=== PATIENT | male | born 1980 | race Caucasian/White ===

== ENCOUNTER 2021-03-30 11:03 | Outpatient (CLI) | payer OTHER ==
[~2021-03-30 11:03] MED LIST: VASOTEC5 MG PO
== END 2021-03-30 11:24 | disposition home or self-care (01) ==
LOC: SONOGRAMA 11:03
PROVIDERS: ATTEND Physical Medicine & Rehabilitation
DX: M77.11 Lateral epicondylitis, right elbow (principal)

== ENCOUNTER 2022-08-10 08:58 | Outpatient (CLI) | payer OTHER | END 2022-08-10 09:39 | disposition home or self-care (01) | LOC: SONOGRAMA 08:58 | PROVIDERS: ATTEND Physical Medicine & Rehabilitation | DX: M79.641 Pain in right hand (principal) ==

== ENCOUNTER 2023-09-04 08:17 | Inpatient (IN) | payer OTHER ==
[~2023-09-04] VITALS: Ht 167.6 cm; Wt 86.2 kg
[2023-09-04] MEDS ORDERED: COZAAR25 MG PO (08:57)
--- NOTE | 2023-09-04 09:02 | NUR ---
PTE ALERTA Y ORIENTADO X3 EN COMPANIA DE FAMILIAR REFIERE VNEIRPOR DOLOR EN BRAZO MAXIME, PTE EXPRESA QUE SHARPE ESTADO VOMITANDO (5), DIAREAS (4) Y QUE SHARPE ESTADO TENIENDO FIEBRE. SE SYDNEE S/V Y SE UBICA.
[2023-09-04] MEDS ORDERED: KETOROLAC TROMETHAMINE 30 MG VIAL IV STA (09:22)
[2023-09-04] MEDS ORDERED: CEFAZOLIN SODIUM 1,000 MG VIAL IV STA (09:23)
[2023-09-04] MEDS ORDERED: DEXAMETHASONE SODIUM PHOSPHATE 4 MG/ML VIAL IV STA (09:23)
[2023-09-04] MEDS ORDERED: 0.9 % SODIUM CHLORIDE 1,000 ML IV STA (09:24)
[2023-09-04] MEDS ORDERED: CEFAZOLIN SODIUM 2,000 MG in DEXTROSE 5 % IN WATER 100 ML IV SCH (09:46)
--- NOTE | 2023-09-04 09:51 | NUR ---
SE EDUCA PACIENTE SOBRE EL TX MEDICO Y KIKI REFIERE ENTENDER. SE SYDNEE MUESTRAS DE LABORATORIOS Y SE ENVIAN. SE ADMINITRAN MEDICAMENTOS CAPO ORDEN MEDICA. PENDIENTE A U/A
[2023-09-04 10:33] LABS: CALCIUM 8.8 mg/dL (8.5-10.1); CREATININE SERUM 1.94 mg/dL (0.70-1.30); GFR 37.96; POTASSIUM 4.34 mEq/L (3.5-5.1)
[2023-09-04 10:36] LABS: HEMATOCRIT 41.1 % (39.0-48.0); HEMOGLOBIN 14.3 g/dL (13-16.00); MEAN CELL VOLUME 87.8 fL (80.0-100.00); MEAN CORPUSCULAR HEMOGLOBIN 30.6 pg (27.00-32.0); MEAN CORPUSCULAR HGB CONC 34.8 g/dl (32.0-36.0); PLATELET COUNT 201 K/uL (150-450); RED BLOOD COUNT 4.68 M/uL (4.00-6.00); RED CELL DISTRIBUTION WIDTH 13.2 % (11.5-14.5)
[2023-09-04 10:38] LABS: URINE APPEARANCE Cloudy; URINE BILIRRUBIN Small (NEGATIVE); URINE BLOOD Negative; URINE COLOR Orange; URINE GLUCOSE Negative (NEGATIVE); URINE LEUKOCYTE Small; URINE NITRATE Positive
[2023-09-04 10:42] LABS: URINE BACTERIA 733.3 uL (0.0-1933); URINE EPITHELIAL CELLS 33.3 uL (0.0-38.8); URINE WBC 71.5 uL (0.0-23.2)
[2023-09-04 11:50] LABS: URINE MUCUS HEAVY; URINE PROTEIN 100 (NEGATIVE)
[2023-09-04] MEDS ORDERED: FAMOTIDINE/PF 20 MG in 0.9 % SODIUM CHLORIDE 100 ML IV SCH (17:02)
[2023-09-04] MEDS ORDERED: 0.9 % SODIUM CHLORIDE 1,000 ML IV SCH (17:15)
[2023-09-04] MEDS ORDERED: ACETAMINOPHEN 325 MG TABLET PO PRN (17:15)
[2023-09-04] MEDS ORDERED: LOSARTAN POTASSIUM 25 MG TABLET PO SCH (17:28)
[2023-09-04] MEDS ORDERED: ENALAPRIL MALEATE 5 MG TABLET PO SCH (17:28)
[2023-09-04] MEDS ORDERED: PIPERACILLIN/TAZOBACTAM SODIUM 3.375 GM in 0.9 % SODIUM CHLORIDE 100 ML IV SCH (18:00)
[2023-09-04 19:28] LABS: ALBUMIN 2.9 gm/dL (3.4-5.0); CALCIUM 8.6 mg/dL (8.5-10.1); CREATININE SERUM 1.72 mg/dL (0.70-1.30); GFR 43.62; PHOSPHOROUS 2.8 mg/dL (2.5-4.9); POTASSIUM 4.91 mEq/L (3.5-5.1)
[2023-09-05] MEDS ORDERED: LINEZOLID 600 MG TABLET PO SCH (13:59)
[2023-09-05 15:29] LABS: PH,URINE 5.5 (5.0-8.0); URINE APPEARANCE Cloudy; URINE BILIRRUBIN Negative (NEGATIVE); URINE BLOOD Small; URINE COLOR Yellow; URINE GLUCOSE Negative (NEGATIVE); URINE LEUKOCYTE Small; URINE NITRATE Negative; URINE UROBILINOGEN 0.2 E.U./dl
[2023-09-05 15:35] LABS: URINE BACTERIA 23.9 uL (0.0-1933); URINE EPITHELIAL CELLS 21.4 uL (0.0-38.8); URINE WBC 38.3 uL (0.0-23.2)
[2023-09-05 16:02] LABS: URINE PROTEIN 100 (NEGATIVE)
[2023-09-06] MEDS ORDERED: MEROPENEM 500 MG/VIAL VIAL IV SCH (08:00)
[2023-09-06] MEDS ORDERED: LINEZOLID IN DEXTROSE 5% 300 ML IV SCH (09:00)
[2023-09-06] MEDS ORDERED: METRONIDAZOLE/SODIUM CHLORIDE 500 MG/100 ML PIGGYBACK IV SCH (12:00)
[2023-09-06 12:25] LABS: ALBUMIN 2.3 gm/dL (3.4-5.0); BILIRUBIN TOTAL 2.76 mg/dL (0.3-1.2); CALCIUM 7.9 mg/dL (8.5-10.1); CREATININE SERUM 1.78 mg/dL (0.70-1.30); GFR 41.92; GLOBULINA 3.1 G/DL (2.4-3.5); MAGNESIUM 1.6 mg/dL (1.8-2.4); PHOSPHOROUS 2.1 mg/dL (2.5-4.9); POTASSIUM 3.47 mEq/L (3.5-5.1); TOTAL PROTEIN 5.4 gm/dL (6.4-8.2)
[2023-09-06] MEDS ORDERED: ACETAMINOPHEN 500 MG GEL..CAP PO PRN (14:38)
[2023-09-06 17:06] LABS: HEMATOCRIT 38.9 % (39.0-48.0); HEMOGLOBIN 13.4 g/dL (13-16.00); MEAN CELL VOLUME 88.2 fL (80.0-100.00); MEAN CORPUSCULAR HEMOGLOBIN 30.3 pg (27.00-32.0); MEAN CORPUSCULAR HGB CONC 34.4 g/dl (32.0-36.0); PLATELET COUNT 141 K/uL (150-450); RED BLOOD COUNT 4.41 M/uL (4.00-6.00); RED CELL DISTRIBUTION WIDTH 13.3 % (11.5-14.5)
[2023-09-06] MEDS ORDERED: CLINDAMYCIN PHOSPHATE 900 MG in DEXTROSE 5 % IN WATER 100 ML IV SCH (19:34)
[2023-09-07 06:32] LABS: HEMATOCRIT 35.1 % (39.0-48.0); HEMOGLOBIN 12.2 g/dL (13-16.00); MEAN CELL VOLUME 88.1 fL (80.0-100.00); MEAN CORPUSCULAR HEMOGLOBIN 30.5 pg (27.00-32.0); MEAN CORPUSCULAR HGB CONC 34.6 g/dl (32.0-36.0); PLATELET COUNT 132 K/uL (150-450); RED BLOOD COUNT 3.99 M/uL (4.00-6.00); RED CELL DISTRIBUTION WIDTH 13.4 % (11.5-14.5)
[2023-09-07 07:11] LABS: ALBUMIN 2.1 gm/dL (3.4-5.0); BILIRUBIN TOTAL 4.31 mg/dL (0.3-1.2); CALCIUM 7.8 mg/dL (8.5-10.1); CREATININE SERUM 1.42 mg/dL (0.70-1.30); GFR 54.41; GLOBULINA 3.1 G/DL (2.4-3.5); POTASSIUM 3.27 mEq/L (3.5-5.1); TOTAL PROTEIN 5.2 gm/dL (6.4-8.2)
[2023-09-07] MEDS ORDERED: LACTOBACILLUS ACIDOPHILUS 1 CAP CAP PO SCH (09:00)
[2023-09-07] MEDS ORDERED: CEFTRIAXONE SODIUM 2,000 MG VIAL IV SCH (17:00)
[2023-09-08 05:36] LABS: MEAN CELL VOLUME 86.4 fL (80.0-100.00); MEAN CORPUSCULAR HGB CONC 35.7 g/dl (32.0-36.0); PLATELET COUNT 148 K/uL (150-450); RED BLOOD COUNT 4.06 M/uL (4.00-6.00); RED CELL DISTRIBUTION WIDTH 13.3 % (11.5-14.5)
[2023-09-08 05:59] LABS: BILIRUBIN TOTAL 5.16 mg/dL (0.3-1.2); BILIRUBIN,CONJUGATED 4.11 mg/dL (0.0-0.2); BILIRUBIN,UNCONJUGATED 1.05 mg/dL (0.0-0.6); CALCIUM 7.7 mg/dL (8.5-10.1); CREATININE SERUM 1.1 mg/dL (0.70-1.30); GFR 73.06; MAGNESIUM 1.8 mg/dL (1.8-2.4); POTASSIUM 3.12 mEq/L (3.5-5.1)
[2023-09-08 06:28] LABS: HEMOGLOBIN 12.5 g/dL (13-16.00); MEAN CORPUSCULAR HEMOGLOBIN 30.7 pg (27.00-32.0)
[2023-09-08 06:50] LABS: C-REACTIVE PROTEIN 13.8 MG/DL (0.00-0.29); PHOSPHOROUS 1.9 mg/dL (2.5-4.9)
[2023-09-08] MEDS ORDERED: IPRATROPIUM BROMIDE 0.5 MG/2.5 ML AMPUL.NEB IH SCH (12:00)
[2023-09-09 06:47] LABS: HEMATOCRIT 33.2 % (39.0-48.0); HEMOGLOBIN 11.8 g/dL (13-16.00); MEAN CELL VOLUME 84.4 fL (80.0-100.00); MEAN CORPUSCULAR HGB CONC 35.6 g/dl (32.0-36.0); PLATELET COUNT 163 K/uL (150-450); RED BLOOD COUNT 3.93 M/uL (4.00-6.00); RED CELL DISTRIBUTION WIDTH 13.5 % (11.5-14.5)
[2023-09-09 07:08] LABS: ALBUMIN 1.9 gm/dL (3.4-5.0); BILIRUBIN TOTAL 3.25 mg/dL (0.3-1.2); BILIRUBIN,CONJUGATED 2.28 mg/dL (0.0-0.2); BILIRUBIN,UNCONJUGATED 0.97 mg/dL (0.0-0.6); CALCIUM 7.6 mg/dL (8.5-10.1); CREATININE SERUM 0.93 mg/dL (0.70-1.30); GFR 88.68; GLOBULINA 3.2 G/DL (2.4-3.5); POTASSIUM 3.36 mEq/L (3.5-5.1); TOTAL PROTEIN 5.1 gm/dL (6.4-8.2)
[2023-09-11 07:43] LABS: CALCIUM 7.7 mg/dL (8.5-10.1); CREATININE SERUM 0.82 mg/dL (0.70-1.30); GFR 102.54; POTASSIUM 3.81 mEq/L (3.5-5.1)
[2023-09-11 08:00] LABS: HEMATOCRIT 33.8 % (39.0-48.0); HEMOGLOBIN 11.8 g/dL (13-16.00); MEAN CELL VOLUME 87.1 fL (80.0-100.00); MEAN CORPUSCULAR HEMOGLOBIN 30.3 pg (27.00-32.0); MEAN CORPUSCULAR HGB CONC 34.8 g/dl (32.0-36.0); PLATELET COUNT 264 K/uL (150-450); RED BLOOD COUNT 3.88 M/uL (4.00-6.00); RED CELL DISTRIBUTION WIDTH 13.7 % (11.5-14.5)
[2023-09-12 06:11] LABS: HEMATOCRIT 32.9 % (39.0-48.0); HEMOGLOBIN 11.6 g/dL (13-16.00); MEAN CELL VOLUME 87.1 fL (80.0-100.00); MEAN CORPUSCULAR HEMOGLOBIN 30.7 pg (27.00-32.0); MEAN CORPUSCULAR HGB CONC 35.2 g/dl (32.0-36.0); PLATELET COUNT 307 K/uL (150-450); RED BLOOD COUNT 3.77 M/uL (4.00-6.00)
[2023-09-12 15:07] LABS: hav igm Negative (Negative); hcv Non Reactive (Non Reactive); hep b c Negative (Negative)
[2023-09-13] MEDS ORDERED: LINEZOLID 600 MG TABLET PO SCH (21:00)
[2023-09-14 11:26] LABS: HEMATOCRIT 36.2 % (39.0-48.0); HEMOGLOBIN 12.5 g/dL (13-16.00); MEAN CELL VOLUME 87.1 fL (80.0-100.00); MEAN CORPUSCULAR HGB CONC 34.5 g/dl (32.0-36.0); PLATELET COUNT 446 K/uL (150-450); RED BLOOD COUNT 4.16 M/uL (4.00-6.00); RED CELL DISTRIBUTION WIDTH 14.8 % (11.5-14.5)
[2023-09-14 12:29] LABS: ALBUMIN 2.6 gm/dL (3.4-5.0); BILIRUBIN TOTAL 0.88 mg/dL (0.3-1.2); CALCIUM 8.7 mg/dL (8.5-10.1); CREATININE SERUM 0.89 mg/dL (0.70-1.30); GFR 93.29; GLOBULINA 4.4 G/DL (2.4-3.5); MAGNESIUM 2.5 mg/dL (1.8-2.4); PHOSPHOROUS 4.1 mg/dL (2.5-4.9); POTASSIUM 4.39 mEq/L (3.5-5.1)
[2023-09-14 12:31] LABS: C-REACTIVE PROTEIN 1.33 MG/DL (0.00-0.29)
== END 2023-09-14 19:42 | disposition home or self-care (01) | DRG 872 ==
LOC: ER 08:17 → MEDI 17:24
PROVIDERS: General Practice; Internal Medicine; Internal Medicine Infectious Disease; Internal Medicine Nephrology; ADMIT Internal Medicine; ATTEND Internal Medicine
PROC: BP3 Imaging, Non-Axial Upper Bones, Magnetic Resonance Imaging (MRI) (ICD-10-PCS; principal; 2023-09-05)
PROC: BW40ZZZ Ultrasonography of Abdomen (ICD-10-PCS; 2023-09-07)
PROC: 3E0F7GC Introduction of Other Therapeutic Substance into Respiratory Tract, Via Natural or Artificial Opening (ICD-10-PCS; 2023-09-08)
PROC: 0JBF3ZZ Excision of Left Upper Arm Subcutaneous Tissue and Fascia, Percutaneous Approach (ICD-10-PCS; 2023-09-08)
PROC: 0JBF3ZZ Excision of Left Upper Arm Subcutaneous Tissue and Fascia, Percutaneous Approach (ICD-10-PCS; 2023-09-13)
DX: A41.9 Sepsis, unspecified organism (principal); L03.114 Cellulitis of left upper limb; N17.8 Other acute kidney failure; N39.0 Urinary tract infection, site not specified; B95.4 Other streptococcus as the cause of diseases classified elsewhere; D72.828 Other elevated white blood cell count; L13.8 Other specified bullous disorders; I10 Essential (primary) hypertension; L08.89 Other specified local infections of the skin and subcutaneous tissue
CPT/HCPCS: 73218

== ENCOUNTER 2024-05-24 11:21 | Outpatient (CLI) | payer OTHER ==
[~2024-05-24 11:21] MED LIST changes: +COZAAR25 MG PO
== END 2024-05-24 11:24 | disposition home or self-care (01) ==
LOC: RAD 11:21
PROVIDERS: ATTEND Physical Medicine & Rehabilitation
DX: M54.59 Other low back pain (principal)